=== PATIENT | male | born 1960 | race Caucasian/White ===

== ENCOUNTER → 2019-02-10 | Outpatient (CLI) | payer OTHER ==
--- NOTE | 2019-02-10 10:07 | DRAGON STRESS TEST REPORT ---
EXERCISE TREADMILL TEST. DATE OF PROCEDURE: February 10, 2019 INDICATION: Patient with unspecified chest pain. Coronary risk factors: Hypertension, dyslipidemia, family history of CAD. Resting EKG: Sinus rhythm, no baseline ST segment changes. Stress EKG: No significant changes noted with with exercise treadmill. Reason for termination: Dyspnea and fatigue. PROCEDURE REPORT: Baseline heart rate: 83 beats per minute with blood pressure of 129/80. Patient had no significant complaints at baseline. Patient was exercised on a standard [place] protocol. Patient exercised for total of 7 minutes and 21 seconds. Exercise was stopped because of fatigue and shortness of breath. Patient denied any chest arm or neck discomfort during the exercise, at peak exercise or in recovery. If automatic blood pressure recorded and if felt not accurate manual blood pressure then were recorded at appropriate intervals. Peak heart rate: 142 bpm, 93 of predicted maximum. Peak blood pressure: 143/70 mmHg. blood pressure at peak exercise could not be obtained. In recovery blood pressure is noted to be 164/86. Double product: 20.3 kcal Exercise EKG: Showed some baseline artifact during exercise but no significant ST segment changes noted. CONCLUSIONS: No chest pain during exercise. Blood pressure response is somewhat abnormal but could be related to techniques. Below average exercise tolerance. Negative EKG changes with exercise. RECOMMENDATIONS: Aggressive risk factor modification, medical therapy. Further evaluation may be indicated based on symptoms and risk factors. Consider cardiology consultation if clinically indicated. Thompson Kahn M.D., [employer] electrical fitter, Board certified in cardiovascular diseases, Nuclear cardiology, Echocardiography Cardiac CT and cardiac MRI Ph. [phone] Ph. [phone] [facility]
== END ==
LOC: SP 08:54
PROVIDERS: ATTEND Nurse Practitioner Family
DX: R07.89 Other chest pain (principal)
CPT/HCPCS: 93017